=== PATIENT | female | born 1950 | race Caucasian/White ===

== ENCOUNTER 2017-02-07 16:01 | Outpatient (CLI) | payer OTHER | END 2017-02-07 18:29 | disposition home or self-care (01) | LOC: SRD 16:01 | PROVIDERS: ATTEND Internal Medicine | DX: M19.071 Primary osteoarthritis, right ankle and foot (principal); M85.871 Other specified disorders of bone density and structure, right ankle and foot ==

== ENCOUNTER 2019-08-30 10:35 | Outpatient (CLI) | payer OTHER | END 2019-08-30 18:17 | disposition home or self-care (01) | LOC: SDS 10:35 | PROVIDERS: ATTEND Internal Medicine | DX: M19.032 Primary osteoarthritis, left wrist (principal); M19.031 Primary osteoarthritis, right wrist; M85.88 Other specified disorders of bone density and structure, other site; M21.932 Unspecified acquired deformity of left forearm; M21.931 Unspecified acquired deformity of right forearm ==